=== PATIENT | male | born 1950 | race Caucasian/White ===

== ENCOUNTER → 2017-03-08 | Outpatient (CLI) | payer OTHER ==
[~2017-03-08] MED LIST: REGADENOSON 0.4 MG/5 ML DISP.SYRIN. IV ONE
--- NOTE | 2017-03-08 13:50 | PCVCIMAG ---
APPROVED REPORT Exam: Nuclear Stress Test Indication: CAD Patient Location: Out-Patient Stress Nurse: Joselyn Perea RN, Cassie Piedra RN [place] Tech:Yaz SO Laird Ht: 5 ft 7 in Wt: 214 lbs BSA: 2.08 m2 HR: 59 bpm BP: 129/63 mmHg BMI: 33 Rhythm: Bradycardia Medical History Medical History: CAD s/p stent, Hyperlipidemia, HTN, Smoking, Age Medications: Nitroglycerin, Coreg, Imdur, Altace, Crestor, Welchol, ASA Allergies: No known drug allergies Previous Cardiac Procedures: PCI- RCA Pretest Chest Pain Characteristics: No chest pain Exercise History: Physically active Physical Disabilities: Knees Stress Test Details Stress Test: Pharmacologic stress testing performed using 0.4 mg of regadenoson per 5 mL given IV over 10 seconds. Reason for pharmacologic stress test: physical limitation, history of LBBB. HR Resting HR: 59 bpmMax Heart Rate (APMHR): 156 bpm Max HR Achieved: 81 bpmTarget HR (85% APMHR): 132 bpm % of APMHR: 51 Recovery HR: 67 bpm BP Resting BP: 129/63 mmHg Max BP: 130/74 mmHg Recovery BP: 126/67 mmHg ECG Resting ECG: Sinus Bradycardia Stress ECG: Sinus Rhythm ST Change: Non-ischemic Arrhythmia: None Recovery ECG: Sinus Rhythm Clinical Reason for Termination: Completed protocol Stress Symptoms: None Exercise duration: 0 min 55 sec Exercise capacity: 1 METs Symptoms resolved during recovery. NM EXAM: Myocardial Perfusion REST/STRESS Imaging Protocol: Rest Tc-99m/Stress Tc-99m 1 day Resting Data Rest SPECT myocardial perfusion imaging was performed in supine position 45 minutes following the intravenous injection of 14.5 mCi of Tc-99m Sestamibi. Time of rest injection: Date: 03/08/2017 Time of rest imaging: Date: 03/08/2017 Pharmacologic Stress Pharmacologic stress test was performed by injecting Regadenoson 0.4 mg IV push followed by the intravenous injection of 45.7 mCi of Tc-99m Sestamibi. Time of stress injection: Date: 03/08/2017 Time of stress imaging: Date: 03/08/2017 Heart Rate at time of stress injection: 75 bpm. Gated Stress SPECT was performed 45 minutes after stress injection. The images were gated to evaluate regional wall motion and calculate left ventricular ejection fraction. Study Quality Study: Good Artifact: Moderate Diaphragmatic artifact Study Data Post stress, the left ventricular ejection was 71%.. Perfusion There is a medium area of moderately reduced uptake in the basal segment of the inferior wall which is seen on the stress images as well as the resting images. This area thickens and moves normally and is most consistent with attenuation artifact. Wall Motion Normal left ventricular wall motion. Clinical Findings: Nondiagnostic EKG Findings: Nonischemic Nuclear Conclusion This study is of low probability for inducible ischemia or prior infarct. Normal global and segmental LV systolic function. No prior study available for comparison.
== END | disposition home or self-care (01) ==
LOC: PCVCIMAG 07:39
PROVIDERS: ATTEND Internal Medicine Cardiovascular Disease
DX: I25.10 Atherosclerotic heart disease of native coronary artery without angina pectoris (principal); I10 Essential (primary) hypertension; E78.00 Pure hypercholesterolemia, unspecified; I44.7 Left bundle-branch block, unspecified; I25.2 Old myocardial infarction; Z72.0 Tobacco use; Z79.82 Long term (current) use of aspirin; Z79.899 Other long term (current) drug therapy; Z95.5 Presence of coronary angioplasty implant and graft
CPT/HCPCS: 78452; 93017; A9500; G0463; J2785

== ENCOUNTER → 2018-03-11 | Outpatient (CLI) | payer MEDICARE, OTHER | END | disposition home or self-care (01) | LOC: PCVCIMAG 13:03 | DX: I25.10 Atherosclerotic heart disease of native coronary artery without angina pectoris (principal); I07.1 Rheumatic tricuspid insufficiency; I10 Essential (primary) hypertension; E78.00 Pure hypercholesterolemia, unspecified; Z95.5 Presence of coronary angioplasty implant and graft; Z79.82 Long term (current) use of aspirin; Z79.899 Other long term (current) drug therapy; Z79.84 Long term (current) use of oral hypoglycemic drugs; Z87.891 Personal history of nicotine dependence | CPT/HCPCS: 93005; 93306; G0463 ==

== ENCOUNTER → 2018-09-12 | Outpatient (CLI) | payer MEDICARE | END | disposition home or self-care (01) | LOC: PCVCCLINIC 12:40 | PROVIDERS: ATTEND Internal Medicine Cardiovascular Disease | DX: I25.10 Atherosclerotic heart disease of native coronary artery without angina pectoris (principal); R94.31 Abnormal electrocardiogram [ECG] [EKG]; I10 Essential (primary) hypertension; E78.00 Pure hypercholesterolemia, unspecified; K21.9 Gastro-esophageal reflux disease without esophagitis; E11.9 Type 2 diabetes mellitus without complications; I25.2 Old myocardial infarction; Z79.82 Long term (current) use of aspirin; Z79.899 Other long term (current) drug therapy; Z87.891 Personal history of nicotine dependence; Z79.84 Long term (current) use of oral hypoglycemic drugs | CPT/HCPCS: 93005; G0463 ==

== ENCOUNTER → 2019-04-08 | Outpatient (CLI) | payer MEDICARE ==
--- NOTE | 2019-04-08 11:14 | PCVCIMAG ---
APPROVED REPORT Imaging Protocol: Rest Tc-99m/Stress Tc-99m 1 day Study performed: 04/08/2019 09:03:48 Indication: Bradycardia, CAD, Hx LBBB Patient Location: Out-Patient Stress Nurse: Joselyn Perea RN, Cassie Piedra RN [place] Tech:Yaz Eitan [facility] Ht: 5 ft 7 in Wt: 200 lbs BSA: 2.02 m2 HR: 57 bpm BP: 161/76 mmHg BMI: 31.32 Rhythm: Sinus Bradycardia Medical History Medical History: Hyperlipidemia, HTN, CAD, Former Smoker Medications: ASA, Carvedilol, Welchol, Tricor, Vascepa, Ramipril, Crestor, Allergies: No known drug allergies Cardiac Risk Factors: Age Previous Cardiac Procedures: 2005 PCI Pretest Chest Pain Characteristics: No chest pain Exercise History: Physically active Physical Disabilities: Hips, Knees Meds Held (24 hrs): Carvedilol Resting Data Rest SPECT myocardial perfusion imaging was performed in supine position 45 minutes following the intravenous injection of 10.8 mCi of Tc-99m Sestamibi. Time of rest injection: 829 Date: 04/08/2019 Administration Route: IV Administration Site: Right AC Pharmacologic Stress Pharmacologic stress test was performed by injecting Regadenoson 0.4 mg IV push over 10-15 seconds immediately followed by the intravenous injection of 32.9 mCi of Tc-99m Sestamibi. Time of stress injection: 944 Administration Route: IV Administration Site: Right AC Gated Stress SPECT was performed 45 minutes after stress injection. The images were gated to evaluate regional wall motion and calculate left ventricular ejection fraction. Stress Test Details Stress Test: Pharmacologic stress was paired with low level exercise. Reason for pharmacologic stress test: physical limitation, Hx LBBB. HRMax Heart Rate (APMHR): 154 bpm Resting HR: 57 bpmTarget HR (85% APMHR): 130 bpm Max HR Achieved: 80 bpm % of APMHR: 51 Recovery HR: 63 bpm BP Resting BP: 161/76 mmHg Max BP: 155/73 mmHg Recovery BP: 137/72 mmHg ECG Resting ECG: Sinus Bradycardia Stress ECG: Sinus Rhythm ST Change: Non-ischemic Arrhythmia: None Recovery ECG: Sinus Bradycardia Clinical Reason for Termination: Completed protocol Stress Symptoms: Dyspnea Symptoms resolved with caffeine. Study Quality Study: Good Artifact: Moderate Diaphragmatic artifact Study Data Post stress, the left ventricular ejection was 69%.. SSS: 0 SRS: 4 SDS: 00 TID = 1.18. Perfusion There is a medium area of moderately reduced uptake in the basal and mid segment of the inferior wall which is seen on the stress images as well as the resting images. This area thickens and moves normally and is most consistent with attenuation artifact. Wall Motion Normal left ventricular wall motion. Nuclear Conclusion ECG Findings: negative for ischemia Clinical Findings: non-diagnostic Nuclear Findings: negative for ischemia Exercise Capacity: not assessed Left Ventricular Function: normal This study is of low probability for inducible ischemia or prior infarct. Normal global and segmental LV systolic function. Artifact: Moderate Diaphragmatic artifact
== END | disposition home or self-care (01) ==
LOC: PCVCIMAG 08:08
PROVIDERS: ATTEND Internal Medicine Cardiovascular Disease
DX: I25.10 Atherosclerotic heart disease of native coronary artery without angina pectoris (principal); I44.7 Left bundle-branch block, unspecified; E78.5 Hyperlipidemia, unspecified; I10 Essential (primary) hypertension; Z87.891 Personal history of nicotine dependence
CPT/HCPCS: 78452; 93017; A9500; G0463; J2785